=== PATIENT | male | born 1985 | race Caucasian/White ===

== ENCOUNTER 2016-07-19 14:33 | Emergency (ER) | payer OTHER ==
[2016-07-19 14:50] VITALS: BP 121/79; PULSE 70; RESP 14; TEMP 98.8; O2SAT 95
[2016-07-19] MEDS ORDERED: LETS SOLN TOPICAL 1 EA SYR TP ONE ×2 (15:42)
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
== END 2016-07-19 16:21 | disposition home or self-care (01) ==
LOC: CED 14:33
PROC: 2W2BX4Z Dressing of Left Upper Arm using Bandage (ICD-10-PCS; principal; 2016-07-19)
DX: S50.811A Abrasion of right forearm, initial encounter (principal); W50.3XXA Accidental bite by another person, initial encounter; Y99.0 Civilian activity done for income or pay; Y93.F9 Activity, other caregiving
CPT/HCPCS: 99214-PO; G0463-PO